=== PATIENT | female | born 2000 | race Asian ===

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

== ENCOUNTER 2019-05-27 12:59 | Emergency (ER) | payer MEDICAID, OTHER ==
[~2019-05-27] VITALS: Ht 160 cm; Wt 68.0 kg
[~2019-05-27 12:59] MED LIST changes: +TRIA15OI TP
[2019-05-27 14:19] VITALS: BP 123/57
[2019-05-27] MEDS ORDERED: ACET500T68 PO (14:43)
[2019-05-27] MEDS ORDERED: WITC1MED18 TP (14:43)
--- NOTE | 2019-05-27 14:44 | PHYS DOC ---
Past Medical History Past Medical History: No Pertinent History Past Surgical History: No Surgical History Alcohol Use: None Drug Use: None Adult General Chief Complaint Chief Complaint: MULTIPLE COMPLAINTS [place] [employer] HPI Patient is a 19 year old female who presents to the emergency room with complaints of a knot in her right breast, and episiotomy pain. Patient states she had a vaginal delivery of a child 6 days ago. Patient states she is breast- feeding. She denies any fever, breast redness, or breast warmth. She denies any abnormal vaginal discharge. Patient states she is out of her Tucks medicated pads for her Episiotomy site and she is also out of her Tylenol she is requesting refills of both his medications. Patient denies any problems with breast-feeding or any change in breast milk output. She denies any dysuria, hematuria, low back pain, abdominal pain, nausea, vomiting, diarrhea, or constipation. All other ROS is neg unless otherwise noted in HPI. Review of Systems Review of Systems See Above Allergies Allergies Allergies Coded Allergies Type Severity Reaction Last Updated Verified No Known Drug Allergies 12/01/18 No Physical Exam Physical Exam See Above Constitutional: Well developed, well nourished, no acute distress, non-toxic appearance. [] HENT: Normocephalic, atraumatic, bilateral external ears normal, , nose normal. [] Eyes: PERRLA, EOMI, conjunctiva normal, no discharge. [] Neck: Normal range of motion,no stridor. [] Cardiovascular:Heart rate regular rhythm Lungs & Thorax: Respirations even and unlabored, no retractions, no respiratory distress; Palpable, round, smooth, tender knot to lateral right breast at 10 o'clock consistent with blocked milk duct. [] Pelvic Exam: Radio Dispatcher present Priscila MANCIA External Genitalia: Healing episiotomy site of perineum, no abnormal discharge, pustule, or erythema Skin: Warm, dry, no erythema, no rash. [] Extremities: No cyanosis, ROM intact Neurologic: Alert and oriented X 3, no focal deficits noted. [] Psychologic: Affect normal, judgement normal, mood normal. [] Current Patient Data Vital Signs Vital Signs Date Time Temp Pulse Resp B/P (MAP) Pulse Ox O2 Delivery O2 Flow Rate FiO2 05/27/19 14:19 98.4 93 16 123/57 (79) 98 Room Air 98.4 EKG EKG [] Radiology/Procedures Radiology/Procedures [] Course & Med Decision Making Course & Med Decision Making Pertinent Labs and Imaging studies reviewed. (See chart for details) [] Anuj Disclaimer Anuj Disclaimer This electronic medical record was generated, in whole or in part, using a voice recognition dictation system. Departure Departure Impression: Primary Impression: Obstructed mammary duct Additional Impression: Discomfort at episiotomy site Disposition: HOME, SELF-CARE Condition: STABLE Referrals: NO PCP (PCP) Patient Instructions: Breast Pumping Tips, [id number], Breast Tenderness, Episiotomy or Perineal Tear, Care After, Sitz Bath, [id number] Additional Instructions: Fill the prescriptions and take as directed. Sitz baths as discussed in the ER. Use your avery bottle to dilute urine with urination. Apply warm compresses to enlarged milk duct, massage area to help unblock milk duct. Follow up with your OBGyn next week as planned. Return to the ER if your symptoms worsen or you develop a fever. Scripts Domenic Tyler (GEORGI) 1 Each Med..pad 1 EACH TP QID PRN for PAIN for 10 Days, #40 PAD 0 Refills Prov: SCOTT CUELLAR QUALITY REVIEW TRAINER 05/27/19 Acetaminophen (ACETAMINOPHEN) 500 Mg Tablet 2 TAB PO PRN Q6HRS PRN for pain or fever for 15 Days, #60 TAB 0 Refills Prov: SCOTT CUELLAR QUALITY REVIEW TRAINER 05/27/19 Problem Qualifiers SCOTT CUELLAR APRN May 27, 2019 14:44
== END 2019-05-27 15:15 | disposition home or self-care (01) ==
LOC: ER 12:59
DX: O90.89 Other complications of the puerperium, not elsewhere classified (principal); N60.41 Mammary duct ectasia of right breast
CPT/HCPCS: 99283

== ENCOUNTER 2019-07-01 20:57 | Emergency (ER) | payer OTHER ==
[~2019-07-01] VITALS: Ht 160 cm; Wt 72.6 kg
[~2019-07-01 20:57] MED LIST changes: +ACET500T68 PO; -CETI10TA22 PO; +CETI10TA24 PO; +WITC1MED18 TP
[2019-07-01 21:12] VITALS: BP 123/57
[2019-07-01] MEDS ORDERED: DEXAMETHASONE 4 MG TABLET PO ONE (21:45)
--- NOTE | 2019-07-01 21:47 | PHYS DOC ---
Past Medical History Past Medical History: No Pertinent History (SIDDHARTHA ONEILL APRN) Past Surgical History: No Surgical History (SIDDHARTHA ONEILL APRN) Alcohol Use: None Drug Use: None (SIDDHARTHA ONEILL APRN) Attending Signature I have participated in the care of this patient and I have reviewed and agree with all pertinent clinical information above including history, exam, and recommendations. (BRITTANY ERAZO MD) Adult General Chief Complaint Chief Complaint: SORE THROAT HPI HPI Patient is a 19 year old female who presents with sore throat this been ongoing for 2-3 days. Patient also is been having associated symptoms include cough, runny nose, loss of appetite. (SIDDHARTHA ONEILL APRN) Review of Systems Review of Systems Constitutional: Denies fever or chills [] Eyes: Denies change in visual acuity, redness, or eye pain [] HENT: Reports nasal congestion and sore throat [] Respiratory: Reports cough denies shortness of breath [] Cardiovascular: No additional information not addressed in HPI [] GI: Denies abdominal pain, nausea, vomiting, bloody stools or diarrhea [] : Denies dysuria or hematuria [] Musculoskeletal: Denies back pain or joint pain [] Integument: Denies rash or skin lesions [] Neurologic: Reports headache,denies focal weakness or sensory changes Complete systems were reviewed and found to be within normal limits, except as documented in this note. (SIDDHARTHA ONEILL APRN) Current Medications Current Medications Current Medications Medications (Trade) Dose Ordered Sig/Katja Start Time Stop Time Status Last Admin Dose Admin Dexamethasone (Decadron) 10 mg 1X ONCE 07/01/19 21:45 07/01/19 21:46 DC 07/01/19 21:45 10 MG (BRITTANY ERAZO MD) Allergies Allergies Allergies Coded Allergies Type Severity Reaction Last Updated Verified No Known Drug Allergies 12/01/18 No (BRITTANY ERAZO MD) Physical Exam Physical Exam Constitutional: Well developed, well nourished, no acute distress, non-toxic appearance. [] HENT: Normocephalic, atraumatic, bilateral external ears normal, oropharynx moist, tonsils are 2+ with no oral exudates, nose normal. [] Eyes: PERRLA, EOMI, conjunctiva normal, no discharge. [] Neck: Normal range of motion, no tenderness, supple, no stridor. [] Cardiovascular:Heart rate regular rhythm, no murmur [] Lungs & Thorax: Bilateral breath sounds clear to auscultation [] Skin: Warm, dry, no erythema, no rash. [] Neurologic: Alert and oriented X 3, normal motor function, normal sensory function, no focal deficits noted. [] Psychologic: Affect normal, judgement normal, mood normal. [] (SIDDHARTHA ONEILL APRN) Current Patient Data Vital Signs Vital Signs Date Time Temp Pulse Resp B/P (MAP) Pulse Ox O2 Delivery O2 Flow Rate FiO2 07/01/19 21:12 98.0 71 18 123/57 (79) 99 Room Air 98.0 (BRITTANY ERAZO MD) EKG EKG [] (SIDDHARTHA ONEILL APRN) Radiology/Procedures Radiology/Procedures [] (SIDDHARTHA ONEILL APRN) Course & Med Decision Making Course & Med Decision Making Pertinent Labs and Imaging studies reviewed. (See chart for details) Will give strep test and give Decadron. Strep test is negative. Will d/c home. (SIDDHARTHA ONEILL APRN) Dragon Disclaimer Dragon Disclaimer This electronic medical record was generated, in whole or in part, using a voice recognition dictation system. (SIDDHARTHA ONEILL APRN) Departure Departure Impression: Primary Impression: Viral syndrome Disposition: HOME, SELF-CARE Condition: STABLE Referrals: NO PCP (PCP) Patient Instructions: Viral Syndrome Additional Instructions: Thank you for visiting [facility]. We appreciate you trusting us with your care. If any additional problems come up don't hesitate to return to visit us. Please follow up with your primary care provider so they can plan additional care if needed and know about the problem that you had. If symptoms worsen come back to the Emergency Department. Any concerning symptoms that start such as chest pain, shortness of air, weakness or numbness on one side of the body, running high fevers or any other concerning symptoms return to the ER. Please fill your medications at any pharmacy and follow the prescription instructions. Please drink plenty of fluids. If unable to keep fluids down please return to ER. Please get Tylenol and Ibuprofen over the counter. Give each medication every 6 hours as directed by the medication labels. In order to utilize the peak of the medications stagger the medications to where the child is getting one of the medications every 3 hours. For example if you give Ibuprofen at 3 PM, you then give Tylenol at 6 PM and Ibuprofen again at 9 PM, and then Tylenol at midnight. Please get Zyrtec over the counter and take per label instructions for runny nose. SIDDHARTHA ONEILL APRN Jul 01, 2019 21:47 BRITTANY ERAZO MD Jul 02, 2019 00:27
== END 2019-07-01 22:20 | disposition home or self-care (01) ==
LOC: ER 20:57
DX: B34.9 Viral infection, unspecified (principal)
CPT/HCPCS: 87070; 87880; 99284; J8540

== ENCOUNTER 2019-08-29 20:03 | Emergency (ER) | payer SELFPAY ==
[~2019-08-29] VITALS: Ht 160 cm; Wt 79.0 kg
[2019-08-29 20:29] VITALS: BP 144/73
[2019-08-29 20:52] LABS: BILIRUBIN,URINE NEGATIVE (NEG); CLARITY,URINE CLEAR; COLOR,URINE YELLOW; NITRITE,URINE NEGATIVE (NEG); PH,URINE 5.5 (<5.0-8.0); PROTEIN,URINE NEGATIVE (NEG-TRACE); UROBILINOGEN,URINE 0.2 mg/dL (0.2 mg/dL)
[2019-08-29 20:57] LABS: BACTERIA,URINE FEW /HPF (0-FEW); RBC,URINE TNTC /HPF (0-2); SQUAMOUS EPITHELIAL CELL,UR FEW /LPF
--- NOTE | 2019-08-29 21:15 | PHYS DOC ---
Past Medical History Past Medical History: No Pertinent History Past Surgical History: No Surgical History Smoking Status: Never Smoker Alcohol Use: None Drug Use: None Adult General Chief Complaint Chief Complaint: ABDOMINAL PAIN HPI HPI Patient is a 19 year old female who is currently on no prescription medications presents with a chief complaint of left sided pelvic pain associated with vaginal spotting. Symptoms have been ongoing for the last 3 or 4 months---- post . Patient states her abdominal pain comes and goes. Pain is described as cramping-- no associated n/v/d or urinary symptoms. At time of exam patient denies pain. Pain appears in no acute distress. ___ During exam patient questioning how long workup/visit would takes. States she has her daughter out in the waiting room and is ready to go. States she will follow up with her Doctor at . Review of Systems Review of Systems Review of systems: Constitutional symptoms- No fever, no chills. Eyes- No Discharge, No Visual Loss, Respiratory symptoms- No shortness of breath, No wheezing, No Dyspnea on Exertion Cardiovascular Systems; No chest pain.No Palpitations, No syncope Gastrointestinal symptoms: NO abdominal pain, no nausea, no vomiting or diarrhea. Genitourinary symptoms: No dysuria. Positive vaginal bleeding positive pelvic pain Musculoskeletal symptoms: No back pain or extremity pain. NEUROLOGICAL Symptoms: No headache, no generalized weakness; No focal Weakness, Allergies Allergies Allergies Coded Allergies Type Severity Reaction Last Updated Verified No Known Drug Allergies 12/01/18 No Physical Exam Physical Exam Constitutional: Well developed, well nourished, no acute distress, non-toxic appearance. [] HENT: Normocephalic, atraumatic, bilateral external ears normal, oropharynx moist, no oral exudates, nose normal. [] Eyes: PERRLA, EOMI, conjunctiva normal, no discharge. [] Neck: Normal range of motion, no tenderness, supple, no stridor. [] Cardiovascular:Heart rate regular rhythm, no murmur [] Lungs & Thorax: Bilateral breath sounds clear to auscultation [] Abdomen: Bowel sounds normal, soft, no tenderness, no masses, no pulsatile masses. [] Skin: Warm, dry, no erythema, no rash. [] Back: No tenderness, no CVA tenderness. [] Extremities: No tenderness, no cyanosis, no clubbing, ROM intact, no edema. [] Neurologic: Alert and oriented X 3, normal motor function, normal sensory function, no focal deficits noted. [] Psychologic: Affect normal, judgement normal, mood normal. [] Current Patient Data Vital Signs Vital Signs Date Time Temp Pulse Resp B/P (MAP) Pulse Ox O2 Delivery O2 Flow Rate FiO2 08/29/19 20:29 97.9 96 16 144/73 (96) 100 Room Air 97.9 Lab Values Laboratory Tests Test 08/29/19 20:20 08/29/19 20:28 Urine Collection Type Unknown Urine Color Yellow Urine Clarity Clear Urine pH 5.5 (<5.0-8.0) Urine Specific [place] 1.010 (1.000-1.030) Urine Protein Negative mg/dL (NEG-TRACE) Urine Glucose (UA) Negative mg/dL (NEG) Urine Ketones (Stick) Negative mg/dL (NEG) Urine Blood Large (NEG) Urine Nitrite Negative (NEG) Urine Bilirubin Negative (NEG) Urine Urobilinogen Dipstick 0.2 mg/dL (0.2 mg/dL) Urine Leukocyte Esterase Negative (NEG) Urine RBC Tntc /HPF (0-2) Urine WBC 1-4 /HPF (0-4) Urine Squamous Epithelial Cells Few /LPF Urine Bacteria Few /HPF (0-FEW) Urine Mucus Slight /LPF POC Urine HCG, Qualitative Hcg negative (Negative) EKG EKG [] Radiology/Procedures Radiology/Procedures [] Course & Med Decision Making Course & Med Decision Making Pertinent Labs and Imaging studies reviewed. (See chart for details) []She was evaluated for chief complaint. Workup consisted of laboratory analysis. Results reviewed and discussed with patient. Results provided on discharge paperwork. On exam Patient abdomen/pel is soft out rebound or guarding. Patient currently denied any pain. During exam patient states she needed to go. States she would like to follow up with her doctors at . Dragon Disclaimer Dragon Disclaimer This electronic medical record was generated, in whole or in part, using a voice recognition dictation system. Departure Departure Impression: Primary Impression: Pelvic cramping Additional Impression: Vaginal spotting Disposition: HOME, SELF-CARE Condition: STABLE Referrals: OSCAR POSADAS Jr, MD Patient Instructions: Pelvic Pain, Female, Uterine Bleeding, Dysfunctional Problem Qualifiers TRAE NORTON I DO Aug 29, 2019 21:15
[2019-08-29] MEDS ORDERED: NORG1TAB70 PO (21:21)
== END 2019-08-29 21:47 | disposition home or self-care (01) ==
LOC: ER 20:03
DX: N93.9 Abnormal uterine and vaginal bleeding, unspecified (principal); R10.2 Pelvic and perineal pain
CPT/HCPCS: 81001; 81025; 99283

== ENCOUNTER 2019-10-24 14:10 | Emergency (ER) | payer SELFPAY ==
[~2019-10-24] VITALS: Ht 162.6 cm; Wt 79.5 kg
[~2019-10-24 14:10] MED LIST changes: +NORG1TAB70 PO
--- NOTE | 2019-10-24 14:54 | EKG ---
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
[2019-10-24 14:58] LABS: BASO % 0 % (0-3); EOS # 0.1 x10^3/uL (0.0-0.7); EOS % 1 % (0-3); HEMATOCRIT 41.1 % (36.0-47.0); HEMOGLOBIN 13.8 g/dL (12.0-15.5); LYMPH % 13 % (24-48); MEAN CORPUSCULAR HEMOGLOBIN 25 pg (25-35); MEAN CORPUSCULAR HGB CONC 33 g/dL (31-37); MEAN CORPUSCULAR VOLUME 74 fL (79-100); MONO # 0.7 x10^3/uL (0.0-1.1); MONO % 9 % (0-9); NEUT # 6.1 x10^3/uL (1.8-7.7); NEUT % 76 % (31-73); PLATELET COUNT 294 x10^3/uL (140-400); RED BLOOD COUNT 5.59 x10^6/uL (3.50-5.40); RED CELL DISTRIBUTION WIDTH 14.4 % (11.5-14.5)
[2019-10-24 15:10] LABS: BILIRUBIN,URINE NEGATIVE (NEG); CLARITY,URINE CLEAR; COLOR,URINE YELLOW; NITRITE,URINE NEGATIVE (NEG); PH,URINE 7.5 (<5.0-8.0); PROTEIN,URINE NEGATIVE (NEG-TRACE)
[2019-10-24 15:10] LABS: PROTHROMBIN TIME PATIENT 12.7 SEC (11.7-14.0)
--- NOTE | 2019-10-24 15:15 | RAD ---
PORTABLE CHEST 1V Clinical History: Cough Technique: AP view of the chest was obtained at 10/24/2019 2:34 PM. Comparison: None. Findings: The cardiomediastinal silhouette is normal. The pulmonary vasculature is normal. There are few linear opacities in the lung bases. Impression: Mild basal infiltrates likely discoid atelectasis. Electronically signed by: Kilo Parisi III, MD (10/24/2019 3:12 PM) [id number]
[2019-10-24 15:16] LABS: BACTERIA,URINE MOD /HPF (0-FEW); RBC,URINE 0 /HPF (0-2); SQUAMOUS EPITHELIAL CELL,UR MOD /LPF; WBC,URINE 0 /HPF (0-4)
[2019-10-24 15:18] LABS: BARBITURATES NEG (NEG); BENZODIAZEPINES NEG (NEG); CANNABINOIDS NEG (NEG); COCAINE NEG (NEG); METHADONE NEG (NEG); OPIATES NEG (NEG); PHENCYCLIDINE NEG (NEG)
[2019-10-24 15:21] LABS: INFLUENZA A PATIENT NEGATIVE (NEGATIVE); INFLUENZA B PATIENT NEGATIVE (NEGATIVE)
[2019-10-24 15:23] LABS: CALCIUM 9.1 mg/dL (8.5-10.1); GFR 70.7; POTASSIUM 3.3 mmol/L (3.5-5.1)
--- NOTE | 2019-10-24 15:26 | PHYS DOC ---
Past Medical History Past Medical History: No Pertinent History Past Surgical History: No Surgical History Smoking Status: Never Smoker Alcohol Use: None Drug Use: None General Adult EDM: Chief Complaint: COUGH HPI: HPI: Patient is a 19 year old female who presents to the ED today complaining of a cough, runny nose, chest heaviness and back heaviness, symptoms began a week ago. Patient also reports fever of 100 last night, she states the [id number] who she lives with tested positive for COVID19. Review of Systems: Review of Systems: Constitutional: Reports fever Eyes: Denies change in visual acuity. [] HENT: Denies nasal congestion or sore throat. [] Respiratory: Reports cough and shortness of breath Cardiovascular: Reports chest heaviness GI: Denies abdominal pain, nausea, vomiting, bloody stools or diarrhea. [] : Denies dysuria. [] Musculoskeletal: Reports back heaviness, denies joint pain. [] Integument: Denies rash. [] Neurologic: Denies headache, focal weakness or sensory changes. [] Psychiatric: Denies depression or anxiety. [] Heart Score: HEART Score for Chest Pain: HEART Score for Chest Pain Response (Comments) Value History Slighlty/Non-Suspicious 0 ECG Normal 0 Age < 45 0 Risk Factors No Risk Factors 0 Troponin < Normal Limit 0 Total 0 Risk Factors: Risk Factors: DM, Current or recent (<one month) smoker, HTN, HLP, family history of CAD, obesity. Risk Scores: Score 0 - 3: 2.5% MACE over next 6 weeks - Discharge Home Score 4 - 6: 20.3% MACE over next 6 weeks - Admit for Clinical Observation Score 7 - 10: 72.7% MACE over next 6 weeks - Early Invasive Strategies Allergies: Allergies: Allergies Coded Allergies Type Severity Reaction Last Updated Verified No Known Drug Allergies 12/01/18 No Physical Exam: PE: Constitutional: Well developed, well nourished, no acute distress, non-toxic appearance. [] HENT: Normocephalic, atraumatic, bilateral external ears normal, oropharynx moist, no oral exudates, nose normal. [] Eyes: PERRLA, EOMI, conjunctiva normal, no discharge. [] Neck: Normal range of motion, no tenderness, supple, no stridor. [] Cardiovascular:Heart rate regular rhythm, no murmur [] Lungs & Thorax: Bilateral breath sounds clear to auscultation [] Abdomen: Bowel sounds normal, soft, no tenderness, no masses, no pulsatile masses. [] Skin: Warm, dry, no erythema, no rash. [] Back: No tenderness, no CVA tenderness. [] Extremities: No tenderness, no cyanosis, no clubbing, ROM intact, no edema. [] Neurologic: Alert and oriented X 3, normal motor function, normal sensory function, no focal deficits noted. [] Psychologic: Affect normal, judgement normal, mood normal. [] Current Patient Data: Labs: Laboratory Tests Test 10/24/19 14:43 10/24/19 14:57 10/24/19 15:02 White Blood Count 8.0 x10^3/uL (4.0-11.0) Red Blood Count 5.59 x10^6/uL (3.50-5.40) H Hemoglobin 13.8 g/dL (12.0-15.5) Hematocrit 41.1 % (36.0-47.0) Mean Corpuscular Volume 74 fL (79-100) L Mean Corpuscular Hemoglobin 25 pg (25-35) Mean Corpuscular Hemoglobin Concent 33 g/dL (31-37) Red Cell Distribution Width 14.4 % (11.5-14.5) Platelet Count 294 x10^3/uL (140-400) Neutrophils (%) (Auto) 76 % (31-73) H Lymphocytes (%) (Auto) 13 % (24-48) L Monocytes (%) (Auto) 9 % (0-9) Eosinophils (%) (Auto) 1 % (0-3) Basophils (%) (Auto) 0 % (0-3) Neutrophils # (Auto) 6.1 x10^3/uL (1.8-7.7) Lymphocytes # (Auto) 1.0 x10^3/uL (1.0-4.8) Monocytes # (Auto) 0.7 x10^3/uL (0.0-1.1) Eosinophils # (Auto) 0.1 x10^3/uL (0.0-0.7) Basophils # (Auto) 0.0 x10^3/uL (0.0-0.2) Prothrombin Time 12.7 SEC (11.7-14.0) Prothrombin Time INR 1.0 (0.8-1.1) Activated Partial Thromboplast Time 30 SEC (24-38) Urine Collection Type Void Urine Color Yellow Urine Clarity Clear Urine pH 7.5 (<5.0-8.0) Urine Specific [place] 1.015 (1.000-1.030) Urine Protein Negative mg/dL (NEG-TRACE) Urine Glucose (UA) Negative mg/dL (NEG) Urine Ketones (Stick) Negative mg/dL (NEG) Urine Blood Negative (NEG) Urine Nitrite Negative (NEG) Urine Bilirubin Negative (NEG) Urine Urobilinogen Dipstick 1.0 mg/dL (0.2 mg/dL) Urine Leukocyte Esterase Negative (NEG) Urine RBC 0 /HPF (0-2) Urine WBC 0 /HPF (0-4) Urine Squamous Epithelial Cells Mod /LPF Urine Bacteria Mod /HPF (0-FEW) POC Urine HCG, Qualitative Hcg negative (Negative) Laboratory Tests 10/24/19 14:43 Vital Signs: Vital Signs Date Time Temp Pulse Resp B/P (MAP) Pulse Ox O2 Delivery O2 Flow Rate FiO2 10/24/19 14:56 126 19 134/77 (96) 99 Room Air 10/24/19 14:20 98.4 98.4 EKG: EKG: [] Radiology/Procedures: Radiology/Procedures: []PROCEDURE: PORTABLE CHEST 1V PORTABLE CHEST 1V Clinical History: Cough Technique: AP view of the chest was obtained at 10/24/2019 2:34 PM. Comparison: None. Findings: The cardiomediastinal silhouette is normal. The pulmonary vasculature is normal. There are few linear opacities in the lung bases. Impression: Mild basal infiltrates likely discoid atelectasis. Electronically signed by: Jam Parisi III, MD (10/24/2019 3:12 PM) [id number] DICTATED and SIGNED BY: JAM PARISI III, MD DATE: 10/24/19 1512 Course & Med Decision Making: Course & Med Decision Making Pertinent Labs and Imaging studies reviewed. (See chart for details) This is a 19-year-old female patient presenting to the ED today with multiple complaints. Patient is complaining of cough, shortness of breath, fever, chest heaviness and back heaviness, symptoms for a week. Was exposed to COVID 19, [id number] tested positive for the disease Chest xray interpreted by radiologist noted for mild basal infiltrates likely discoid atelectasis. COVID test pending. Ziipa not working. D/c to home. Will be contacted with results for COVID testing. Instructed to quarantine herself for 14 days Anuj Disclaimer: Anuj Disclaimer: This electronic medical record was generated, in whole or in part, using a voice recognition dictation system. Departure Departure Impression: Primary Impression: Cough Disposition: 01 HOME, SELF-CARE Condition: STABLE Referrals: NO PCP (PCP) follow up with your doctor in 2 weeks Patient Instructions: Cough, Adult, [id number] Additional Instructions: Your COVID 19 test is pending. We will call you if positive. In the mean time please quarantine yourself for 14 days Take tylenol for fever or pain Rest, push fluids. 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
[2019-10-24 15:33] LABS: AMPHETAMINE/METHAMPHETAMINE NEG (NEG)
[2019-10-24 15:38] LABS: ALBUMIN 3.7 g/dL (3.4-5.0); ALBUMIN/GLOBULIN RATIO 0.9 (1.0-1.7); C-REACTIVE PROTEIN 4.4 mg/L (0-3.3); MAGNESIUM 1.9 mg/dL (1.8-2.4); TOTAL BILIRUBIN 0.4 mg/dL (0.2-1.0)
[2019-10-24 16:56] VITALS: BP 125/75
--- NOTE | 2019-10-25 17:56 | NUR ---
IP: Pt is COVID +. Results faxed to ED.
== END 2019-10-24 17:20 | disposition home or self-care (01) ==
LOC: ER 14:10
DX: U07.1 COVID-19 (principal); R50.9 Fever, unspecified; R05 Cough; R09.89 Other specified symptoms and signs involving the circulatory and respiratory systems
CPT/HCPCS: 36415; 71045; 80053; 80307; 81001; 81025; 82553; 82728; 83605; 83735; 83880; 84145; 84443; 84484; 85025; 85610; 85651; 85730; 86140; 87040; 87635; 87804; 93005; 99285